=== PATIENT | male | born 2005 | race Caucasian/White ===

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

== ENCOUNTER 2024-01-23 14:09 | Emergency (ER) | payer OTHER ==
[~2024-01-23] VITALS: Ht 180.3 cm; Wt 104.3 kg
[~2024-01-23 14:09] MED LIST: IBUP-2213 PO; LIDO1ADH38 TP; METH-1681 PO
[2024-01-23 14:14] VITALS: BP 164/105; PULSE 83; RESP 18; TEMP 98.3; O2SAT 99
[2024-01-23] MEDS ORDERED: IBUPROFEN 600 MG TAB ONE (14:34)
[2024-01-23] MEDS: IBUPROFEN 600 MG TAB PO STA (14:37)
[2024-01-23] MEDS: IBUPROFEN 600 MG TAB PO SCH (14:38)
[2024-01-23] MEDS ORDERED: IBUP-2213 PO (15:03)
[2024-01-23 15:55] VITALS: BP 135/82; PULSE 88; RESP 16; TEMP 98.3; O2SAT 99
== END 2024-01-23 15:55 | disposition home or self-care (01) ==
LOC: MED 14:09
DX: S63.501A Unspecified sprain of right wrist, initial encounter (principal); Z79.899 Other long term (current) drug therapy; X50.0XXA Overexertion from strenuous movement or load, initial encounter; Y92.89 Other specified places as the place of occurrence of the external cause; Y93.89 Activity, other specified; Y99.8 Other external cause status
CPT/HCPCS: 73110; 99283

== ENCOUNTER 2024-07-03 12:42 | Emergency (ER) | payer OTHER ==
[~2024-07-03] VITALS: Ht 180.3 cm; Wt 113.4 kg
[2024-07-03 13:22] VITALS: BP 134/74; PULSE 87; RESP 15; TEMP 98.8; O2SAT 97
== END 2024-07-03 14:18 | disposition home or self-care (01) ==
LOC: MED 12:42
DX: S63.91XA Sprain of unspecified part of right wrist and hand, initial encounter (principal); R51.9 Headache, unspecified; M79.642 Pain in left hand; Z79.899 Other long term (current) drug therapy; V89.2XXA Person injured in unspecified motor-vehicle accident, traffic, initial encounter; Y93.89 Activity, other specified; Y92.89 Other specified places as the place of occurrence of the external cause; Y99.8 Other external cause status
CPT/HCPCS: 73130; 99283